=== PATIENT | female | born 1955 | race Caucasian/White ===

== ENCOUNTER → 2020-04-14 10:12 | Outpatient (CLI) | payer MEDICARE, OTHER, SELFPAY ==
[2020-04-14 10:56] LABS: Add Manual Diff / Slide Review NO; Basophils Absolute Auto 100 /uL (0-100); Basophils Percent Auto 1.1 % (0-2); Eosinophils Absolute Auto 200 /uL (0-450); Eosinophils Percent Auto 2.9 % (2-4); Hematocrit 38.5 % (36-46); Hemoglobin 12.9 g/dL (12.0-16.0); Lymphocytes Absolute Auto 1900 /uL (1100-4500); Lymphocytes Percent Auto 36.6 % (25-40); Mean Corpuscular HGB Conc 33.5 % (30-36); Mean Corpuscular Hemoglobin 30.7 PG (26-34); Mean Corpuscular Volume 91.5 fL (80-100); Monocytes Absolute Auto 400 /uL (0-900); Monocytes Percent Auto 8.3 % (3-14); Neutrophils Absolute Auto 2700 /uL (1500-7000); Neutrophils Percent Auto 51.1 % (50-75); Platelet Count 336 X10^3/uL (150-400); Red Blood Cell Count 4.21 X10^6/uL (4.0-5.2); Red Cell Distribution Width 13.1 % (11.6-14.8); White Blood Cell Count 5.3 X10^3/uL (4.5-11.0)
[2020-04-14 11:19] LABS: Alanine Aminotransferase 158 IU/L (<35); Albumin 4.2 g/dL (3.5-5.0); Albumin Globulin Ratio 1.3 (1.0-2.8); Alkaline Phosphatase 131 U/L (38-126); Aspartate Aminotransferase 64 IU/L (14-36); BUN Creatinine Ratio 23.3 (6-22); Bilirubin Total 0.6 mg/dL (0.2-1.3); Blood Urea Nitrogen 17 mg/dL (7-17); Calcium 9.3 mg/dL (8.4-10.2); Carbon Dioxide 33 mmol/L (22-32); Chloride 102 mmol/L (98-107); Cholesterol 239 mg/dL (140-199); Estimated Glomerular Filt Rate > 60.0 mL/min (>60); Globulin 3.3 g/dL (1.7-4.1); Glucose 107 mg/dL (80-110); HDL Cholesterol 70 mg/dL (40-60); HEMOLYSIS < 15 (0-50); LDL Cholesterol Calculated 147 mg/dL (<100); Potassium 3.9 mmol/L (3.4-5.1); Sodium 136 mmol/L (137-145); Total Protein 7.5 g/dL (6.3-8.2); Triglycerides 110 mg/dL (35-150)
[2020-04-14 12:20] LABS: TSH w/ Reflex to FT4 0.62 uIU/mL (0.47-4.68)
== END ==
PROVIDERS: Referring Provider Internal Medicine; Visit Provider Internal Medicine
DX: Z12.31 Encounter for screening mammogram for malignant neoplasm of breast (principal); G47.00 Insomnia, unspecified; E03.9 Hypothyroidism, unspecified; J45.909 Unspecified asthma, uncomplicated; Z13.220 Encounter for screening for lipoid disorders
CPT/HCPCS: 36415; 80053; 80061; 84443; 85025

== ENCOUNTER → 2020-04-25 09:55 | Outpatient (CLI) | payer MEDICARE, OTHER, SELFPAY ==
[2020-04-25 10:56] LABS: Alanine Aminotransferase 43 IU/L (<35); Aspartate Aminotransferase 36 IU/L (14-36); Gamma Glutamyl Transpeptidase 113 U/L (12-43)
[2020-04-25 11:31] LABS: Ferritin 67 ng/mL (11-264)
[2020-04-26 08:08] LABS: Hepatitis B Surf Ab Qualitativ Non Reactive (.)
[2020-04-28 17:24] LABS: Hepatitis B Surface Antigen NEGATIVE s/c (NEGATIVE)
[2020-04-28 17:38] LABS: Hep C Virus Ab w/Reflex Quant NEGATIVE s/c (NEGATIVE)
== END ==
PROVIDERS: Referring Provider Internal Medicine; Visit Provider Internal Medicine
DX: R74.01 Elevation of levels of liver transaminase levels (principal)
CPT/HCPCS: 36415; 82728; 82977; 84450; 84460; 86706; 86803; 87340

== ENCOUNTER → 2020-04-28 13:07 | Outpatient (CLI) | payer MEDICARE, OTHER, SELFPAY | PROVIDERS: PCP Internal Medicine; Referring Provider Internal Medicine; Visit Provider Internal Medicine | DX: M85.852 Other specified disorders of bone density and structure, left thigh (principal); Z78.0 Asymptomatic menopausal state; E07.9 Disorder of thyroid, unspecified; I10 Essential (primary) hypertension; Z90.722 Acquired absence of ovaries, bilateral; Z82.62 Family history of osteoporosis; Z87.891 Personal history of nicotine dependence | CPT/HCPCS: 77080 ==

== ENCOUNTER → 2021-08-31 11:38 | Outpatient (CLI) | payer MEDICARE, OTHER, SELFPAY ==
[2021-08-31 13:49] LABS: COVID19 -Nasal RAPID Negative (Negative)
== END ==
PROVIDERS: PCP Internal Medicine; Referring Provider Family Medicine Sleep Medicine; Visit Provider Family Medicine Sleep Medicine
DX: Z20.822 Contact with and (suspected) exposure to COVID-19 (principal)
CPT/HCPCS: 87635; C9803

== ENCOUNTER 2021-09-02 07:59 | Day surgery (SDC) | payer MEDICARE, OTHER, SELFPAY ==
--- NOTE | 2021-09-02 | PATH_ITS ---
[facility] Accession Number: [id number] . 01 Material submitted: . rectosigmoid junction - RECTOSIGMOID COLON POLYP . 02 Diagnosis: Rectosigmoid Colon Polyp, Biopsy: Fragments of hyperplastic polyp. MRV 09/04/2021 1041 Local . 02 Electronically signed: . Reese Lowry MD, PhD, Pathologist NPI- [id number] . 01 Gross description: . RECTOSIGMOID COLON POLYP: Received in formalin are 3 fragment(s) of [place], soft tissue measuring 0.4 x 0.2 x 0.1 cm to 0.1 x 0.1 x 0.1 cm submitted entirely in 1 cassette(s) /CPE 09/03/2021 0643 Local . 02 Pathologist provided ICD-10: K63.5 . 02 CPT . 511911 Specimen Comment: A courtesy copy of this report has been sent to [phone], [phone] Specimen Comment: [id number] Performed at: 01 [facility] [address] [facility], [place], [place] [id number] MD Asael Zamora MD Phone: [phone] Performed at: 02 [facility] [address] [place], [place] [id number] MD Ciara Souza MD Phone: [phone]
[2021-09-02 08:19] VITALS: BP 138/83; PULSE 74; RESP 16; TEMP 35.8; O2SAT 99; BMI 27.1
--- NOTE | 2021-09-02 08:36 | PM.HP.1 ---
History of Present Illness History of Present Illness Chief complaint: DX COLONOSCOPY Narrative: History of colon polyps with Cologuard positivity Patient History Surgical History (Updated 09/20/17 @ 06:10 by Conversion Provider) Status post breast augmentation Status post hysterectomy Family & Social History Family History (Updated 11/18/15 @ 00:00 by Conversion Provider) Brother Age: 68 Hypertension Child Asphyxiation Mother Age: 91 Essential hypertension Social History: household members spouse Tobacco & Substance use: Smoking Status Never smoker alcohol intake current alcohol intake frequency 0-2 drinks per day Substance Use Type does not use Meds Home Medications and Allergies Home Medications Medication Instructions Recorded Confirmed Type zolpidem 5 mg tablet 5 mg PO HS #90 tab 04/27/16 09/02/21 Rx Estroven 09/02/21 History Synthroid 75 mcg PO DAILY 09/02/21 09/02/21 History calcium 600 mg PO DAILY 09/02/21 09/02/21 History hydrochlorothiazide 25 mg PO DAILY 09/02/21 09/02/21 History loratadine 10 mg PO DAILY 09/02/21 09/02/21 History losartan 25 mg tablet 25 mg PO DAILY 09/02/21 09/02/21 History montelukast 10 mg PO DAILY 09/02/21 09/02/21 History Allergies Allergy/AdvReac Type Severity Reaction Status Date / Time nitrofurantoin Allergy Severe Hives Verified 09/02/21 08:04 [From MACROBID] Exam Vital Signs (past 8 hours): - 09/02/21 08:19 Temperature 96.5 F L Pulse Rate 74 Respiratory Rate 16 Blood Pressure 138/83 Pulse Oximetry 99 Oxygen Delivery Method Room Air Narrative Exam Narrative: Oropharynx free of lesions Chest clear to auscultation percussion Cardiac exam reveals no S3 or murmur Assessment & Plan Assessment & Plan narrative: Cologuard positive in the face of history of colon polyps with last colonoscopy years ago. Risks, benefits, alternatives have been explained. Time Spent With Patient Critical Care time: I spent a total of [] minutes of critical care time on this patient's care today; this time is exclusive of procedural time.
[2021-09-02] MEDS: SODIUM CHLORIDE 0.9% 1,000 ML 84 ML IV (08:37)
--- NOTE | 2021-09-02 08:37 | PM.OP.COLON ---
Operative Date/Time/Diagnoses Date of procedure: 09/02/21 Pre-op diagnosis: See indication and findings Procedure & Clinicians Study performed: Colonoscopy Indications: Cologuard positive and history of colon polyps Surgeon: Geraldo Anthony Procedure Notes Procedure in detail: After informed consent was obtained the patient was placed in left lateral decubitus position. The video colonoscope was introduced the rectum slowly advanced to the cecum. Preparation was good. On slow withdrawal mucosa was carefully examined. The scope was removed. The patient tolerated the procedure well. Blood loss none Complications none Sedation mac Findings 1. Extensive sigmoid diverticulosis 2. Three rectosigmoid polyps none over 4 mm Jumbo biopsy removed completely 3. Otherwise negative colonoscopy to cecum Given there is no clear reason for her Cologuard positivity I would suggest performing CBC and performing EGD if she is anemic.
[2021-09-02 09:34] VITALS: BP 109/70; PULSE 77; RESP 20; TEMP 36.4; O2SAT 95
[2021-09-02 09:37] VITALS: BP 118/66; PULSE 68; RESP 15; O2SAT 97
[2021-09-02 09:42] VITALS: BP 121/74; PULSE 66; RESP 15; O2SAT 95
[2021-09-02 09:49] VITALS: BP 132/81; PULSE 64; RESP 15; O2SAT 95
[2021-09-02 09:56] VITALS: BP 134/76; PULSE 61; RESP 16; O2SAT 96
== END 2021-09-02 10:24 | disposition home or self-care (01) ==
PROVIDERS: PCP Physician Assistant; Referring Provider Internal Medicine Gastroenterology; Visit Provider Internal Medicine Gastroenterology
PROC: 0DJD8ZZ Inspection of Lower Intestinal Tract, Via Natural or Artificial Opening Endoscopic (ICD-10-PCS; CPT 45378; principal; 2021-09-02 09:00)
DX: R19.5 Other fecal abnormalities (principal); Z86.010 Personal history of colon polyps; K57.30 Diverticulosis of large intestine without perforation or abscess without bleeding; K63.5 Polyp of colon
CPT/HCPCS: 45380; J2704

== ENCOUNTER → 2022-10-04 15:02 | Outpatient (CLI) | payer MEDICARE, OTHER, SELFPAY ==
--- NOTE | 2022-10-04 15:05 | DI.MRI.S_ITS ---
PROCEDURE: MR SHOULDER RT WO CON INDICATIONS: Unspecified rotator cuff tear or rupture of right shoulder, TECHNIQUE: Noncontrast oblique coronal T2 fast spin echo with fat saturation, oblique sagittal T1 spin echo and T2 fast spin echo with fat saturation, axial T1 spin echo and T2 fast spin echo with fat saturation through the shoulder. COMPARISON: None. FINDINGS: Image quality: Excellent. Rotator cuff: Mild T2 signal elevation diffusely throughout the supraspinatus and infraspinatus tendons at the humeral insertion sites extending to the musculotendinous junctions, indicating tendinopathy. Superimposed moderate grade intrasubstance and bursal surface tearing of the anterior and mid supraspinatus tendon at the humeral insertion site. Low-grade intrasubstance tearing of the posterior supraspinatus and anterior infraspinatus tendon at the humeral insertion site. Subscapularis, infraspinatus, and teres minor tendons are intact. Bones and bursae: No bone marrow contusions or fractures. Mild glenohumeral and moderate acromioclavicular joint degeneration. The acromion demonstrates conventional anatomy, without an os acromiale. A small amount of subacromial-subdeltoid or subcoracoid bursal fluid is present. Capsule and soft tissues: There is focal undercutting of the mid posterior labrum (series 6, image 13). The long head of the biceps tendon demonstrates normal location and morphology. The rotator interval appears normal, without fibrosis. The coracohumeral ligament is normal in thickness. IMPRESSION: 1. Supraspinatus and infraspinatus tendinopathy with superimposed partial thickness tears. 2. Subacromial bursitis. 3. Acromioclavicular and glenohumeral joint osteoarthritis. 4. Possible posterior labral tearing. Dictated by: Bernabe Davis M.D. on 10/04/2022 at 16:14 Transcribed by: DUANE on 10/04/2022 at 16:16 Approved by: Bernabe Davis M.D. on 10/04/2022 at 16:25
== END ==
PROVIDERS: PCP Physician Assistant; Referring Provider Orthopaedic Surgery; Visit Provider Orthopaedic Surgery
DX: M75.111 Incomplete rotator cuff tear or rupture of right shoulder, not specified as traumatic (principal); M75.51 Bursitis of right shoulder; M19.011 Primary osteoarthritis, right shoulder
CPT/HCPCS: 73221